=== PATIENT | female | born 1965 | race Caucasian/White ===

== ENCOUNTER 2020-03-29 07:08 | Outpatient (NON) | payer OTHER, SELFPAY ==
[2020-03-29 18:47] LABS: SARS-CoV-2 RNA PCR Positive
== END 2020-03-29 07:09 ==
LOC: ANHCOVIDDT 07:08
PROVIDERS: PCP Family Medicine; Visit Provider Family Medicine
DX: U07.1 COVID-19 (principal)
CPT/HCPCS: C9803; U0003; U0005

== ENCOUNTER 2020-10-18 07:42 | Outpatient (CLI) | payer OTHER, SELFPAY ==
[2020-10-18 08:09] LABS: Basophils Absolute Auto 0.1 K/mm3 (0.0-0.1); Basophils Percent Auto 0.6 % (0.2-1.2); Eosinophils Absolute Auto 0.2 K/mm3 (0-0.3); Eosinophils Percent Auto 1.7 % (0-4.4); Hematocrit 43.6 % (37.0-47.0); Hemoglobin 14.7 g/dL (12.0-15.0); Immature Granulocyte Absolute 0.03 K/mm3 (0.00-0.031); Immature Granulocyte Percent A 0.3 % (0-0.5); Lymphocytes Absolute Auto 2.96 K/mm3 (0.9-3.2); Lymphocytes Percent Auto 33.6 % (18.3-44.2); Mean Corpuscular HGB Conc 33.7 g/dl (32-36); Mean Corpuscular Hemoglobin 31.3 pg (26-34); Mean Platelet Volume 9.5 fl (7.4-10.4); Monocytes Absolute Auto 0.8 K/mm3 (0.1-0.6); Neutrophils Absolute Auto 4.8 K/mm3 (1.3-6.7); Neutrophils Percent Auto 54.8 % (45.5-73.1); Platelet Count Result 364 k/mm3 (150-375); Red Blood Count 4.69 M/mm3 (4.2-5.4); Red Cell Distribution Width 12.8 % (11.5-14.5); White Blood Count 8.8 K/mm3 (4.5-10.0)
[2020-10-18 08:24] LABS: Rheumatoid Factor < 8.6 IU/ML (<12)
[2020-10-18 08:25] LABS: CRP < 0.5 mg/dL (<1.0)
[2020-10-18 09:01] LABS: Vitamin D 25 Hydroxy 53.6 ng/mL
[2020-10-18 09:47] LABS: Erythrocyte Sedimentation Rate 16 mm/hr (0-20)
== END 2020-10-18 07:43 | disposition home or self-care (01) ==
PROVIDERS: PCP Family Medicine; Visit Provider Family Medicine
DX: M25.50 Pain in unspecified joint (principal); E03.9 Hypothyroidism, unspecified; E55.9 Vitamin D deficiency, unspecified
CPT/HCPCS: 36415; 82306; 84443; 85025; 85652; 86038; 86140; 86430

== ENCOUNTER 2021-11-21 00:35 | Day surgery (SDC) | payer OTHER, SELFPAY ==
[2021-11-10 14:33] VITALS: BMI 31.1
--- NOTE | 2021-11-20 20:22 | PM.HPGS ---
History of Present Illness History of Present Illness Consent: Risks, benefits, and alternatives have been discussed and questions answered. Patient agrees to proceed with procedure. Chief complaint: neoplasm screening Narrative: Paula Guo is a 56 year old female refferred for colon cancer screening Review of Systems Review of Systems: All systems reviewed & are unremarkable except as noted in HPI and below PMFSH Family History Family History Other Cerebrovascular accident Diabetes mellitus Family history of alcoholism Family history of arthritis Family history of malignant neoplasm Hypertension Social History Social History Smoking status: Never smoker Alcohol intake: current Living arrangements: with family Spiritual care concerns: No Meds Home Medications and Allergies Home Medications Medication Instructions Recorded Confirmed Type cetirizine 10 mg tablet 10 mg PO DAILY 11/10/21 11/21/21 History ergocalciferol (vitamin D2) 1,250 1,250 mcg PO DAILY 11/10/21 11/21/21 History mcg (50,000 unit) capsule escitalopram oxalate 10 mg tablet 10 mg PO DAILY 11/10/21 11/21/21 History hydrochlorothiazide 12.5 mg capsule 12.5 mg PO DAILY 11/10/21 11/21/21 History levothyroxine 25 mcg tablet 25 mcg PO DAILY 11/10/21 11/21/21 History (Synthroid) valacyclovir 1 gram tablet 1,000 mg PO DAILY 11/10/21 11/21/21 History Allergies Allergy/AdvReac Type Severity Reaction Status Date / Time No Known Allergies Allergy Verified 11/21/21 06:21 Exam Const: General: alert Orientation/consciousness: patient oriented x3 Resp: Auscultation: clear to auscultation bilaterally Cardio: Rhythm: regular rhythm GI: GI Palp: Yes Soft to palpation and No Tenderness to palpation present (GI) Neuro: General: patient oriented x3 Assessment and Plan Assessment and plan (1) Colon cancer screening: Code(s): Z12.11 - Encounter for screening for malignant neoplasm of colon Status: Acute Assessment and Plan: Colonoscopy with possible biopsy or polypectomy or cautery or injection of substances.
[2021-11-21 06:15] VITALS: BP 153/81; PULSE 88; RESP 16; TEMP 36.4; O2SAT 97; BMI 31.2
[2021-11-21] MEDS: LACTATED RINGERS 1,000 ML 150 ML IV CONT (06:31)
--- NOTE | 2021-11-21 07:20 | WPDANESEPPF ---
Anes - Initial Pre Proc Eval Procedure: Operation Date: 11/21/21 07:30 Proposed Procedures p Screening Colonoscopy - Kennedy Navarro MD Date/Time: 11/21/21 07:20 Surgeon: Kennedy Navarro MD Pre Op Diagnosis: neoplasm screening Patient Data Age: 56 Gender: F Height: 1.57 m Weight: 77.5 kg Last Vital Signs Temp 97.5 F L 11/21/21 06:15 Pulse 88 11/21/21 06:15 Resp 16 11/21/21 06:15 BP 153/81 H 11/21/21 06:15 Pulse Ox 97 11/21/21 06:15 O2 Del Method Room Air 11/21/21 06:15 Allergies Allergy/AdvReac Type Severity Reaction Status Date / Time No Known Allergies Allergy Verified 11/21/21 06:21 Home Medications Medication Instructions Recorded Confirmed Type cetirizine 10 mg tablet 10 mg PO DAILY 11/10/21 11/21/21 History ergocalciferol (vitamin D2) 1,250 1,250 mcg PO DAILY 11/10/21 11/21/21 History mcg (50,000 unit) capsule escitalopram oxalate 10 mg tablet 10 mg PO DAILY 11/10/21 11/21/21 History hydrochlorothiazide 12.5 mg capsule 12.5 mg PO DAILY 11/10/21 11/21/21 History levothyroxine 25 mcg tablet 25 mcg PO DAILY 11/10/21 11/21/21 History (Synthroid) valacyclovir 1 gram tablet 1,000 mg PO DAILY 11/10/21 11/21/21 History Patient hx anesthesia problems: none Family hx anesthesia problems: none Results Review: All pre-operative results and documents have been reviewed as part of the pre-operative evaluation. [facility]LY [facility] Family History Family History (Updated 10/01/16 @ 07:53 by DOCTOR UNKNOWN) Other Cerebrovascular accident Diabetes mellitus Family history of alcoholism Family history of arthritis Family history of malignant neoplasm Hypertension Social History Social History Smoking status: Never smoker Alcohol intake: current Living arrangements: with family Spiritual care concerns: No Anes - Eval Final PreProcedure Day of Procedure 11/21/21 07:20 Patient weight: obese Heart: regular rate and rhythm Lungs: clear to auscultation Airway: Mallampati scale class II Neurological: alert and oriented Last oral intake: >/= 8 hours ASA classification: III Emergent: no Anesthetic plan: proceed Anesthesia type and monitoring: general GIVS and standard monitoring Results Review: All pre-operative results and documents have been reviewed as part of the pre-operative evaluation. Informed Consent: The patient's anesthetic plan and its attendant risks and benefits were discussed with the patient/family/POA. Questions were solicited and answers provided to the satisfaction of the patient/family/POA.
[2021-11-21 07:50] VITALS: BP 132/83; PULSE 85; RESP 15; O2SAT 96
[2021-11-21 08:00] VITALS: BP 133/75; PULSE 79; RESP 17; O2SAT 96
[2021-11-21 08:10] VITALS: BP 133/86; PULSE 74; RESP 13; O2SAT 100
== END 2021-11-21 08:19 | disposition home or self-care (01) ==
PROVIDERS: PCP Family Medicine; Visit Provider Internal Medicine Gastroenterology
PROC: 0DJD8ZZ Inspection of Lower Intestinal Tract, Via Natural or Artificial Opening Endoscopic (ICD-10-PCS; CPT 45378; principal; 2021-11-21 07:30)
DX: Z12.11 Encounter for screening for malignant neoplasm of colon (principal); K63.9 Disease of intestine, unspecified; K64.8 Other hemorrhoids
CPT/HCPCS: 45380; 88305; J2704; J7120

== ENCOUNTER 2022-04-27 08:27 | Outpatient (CLI) | payer OTHER, SELFPAY ==
--- NOTE | ~2022-04-27 | MM_ITS ---
EXAMINATION: MM screening willie BI w yasmeen HISTORY: Screening mammogram TECHNIQUE: Craniocaudal and mediolateral oblique 3-D tomosynthesis images were obtained and synthetic 2-D images were generated. CAD analysis was submitted and interpreted. COMPARISON: 07/17/2014 bilateral screening mammogram BREAST PARENCHYMAL COMPOSITION: The breasts are almost entirely fatty. FINDINGS: There is no evidence of suspicious mass, calcification, or architectural distortion to sugg est malignancy in either breast. There has been no suspicious interval change. IMPRESSION: 1. No mammographic evidence of malignancy. 2. Recommend routine screening mammography in one year. BI-RADS Category 1: Negative Reviewed, dictated and finalized at location A. E[facility] AFFA[facility] VICE PRESIDENT
== END 2022-04-27 08:28 | disposition home or self-care (01) ==
LOC: ANHIMG 08:29
PROVIDERS: PCP Family Medicine; Visit Provider Family Medicine
DX: Z12.31 Encounter for screening mammogram for malignant neoplasm of breast (principal)
CPT/HCPCS: 77063; 77067

== ENCOUNTER 2023-03-07 15:22 | Emergency (ER) | payer OTHER, SELFPAY ==
[2023-03-07 15:43] VITALS: BP 140/79; PULSE 100; RESP 15; TEMP 36.2; O2SAT 97
[2023-03-07 17:33] LABS: Influenza A QL RT-PCR Negative (Negative); Influenza B QL RT-PCR Negative (Negative); RSV RNA, RT-PCR Negative (Negative); SARS-CoV-2 RNA PCR Negative (Negative)
[2023-03-07 17:38] VITALS: BP 185/85; PULSE 65; RESP 22; O2SAT 98
--- NOTE | 2023-03-07 17:49 | PC.NURSE ---
Pts came out of room stating patient could not breathe. This RN in room to find patient sitting up in bed as if she was gasping for air. Patient would not respond to RNs questions, told hre her nose was clogged. VSS, 98% O2 RA. Pt then began breathing normally again and stated I can get air now . Dr. Mujica notified.
--- NOTE | 2023-03-07 18:05 | ED.GENADULT ---
HPI - General Adult General Chief complaint: Upper Respiratory Infection Stated complaint: sick, trouble breathing Time Seen by Provider: 03/07/23 16:03 History of Present Illness HPI narrative: Patient is a 58-year-old female who presents ER with sinus congestion. Began today. Associated postnasal drip and cough. Is quite burdensome to her. No difficulty swallowing. No chest pain or chest pressure. Related Data Home Medications Medication Instructions Recorded Confirmed cetirizine 10 mg tablet 10 mg PO DAILY 11/10/21 11/21/21 ergocalciferol (vitamin D2) 1,250 1,250 mcg PO DAILY 11/10/21 11/21/21 mcg (50,000 unit) capsule escitalopram oxalate 10 mg tablet 10 mg PO DAILY 11/10/21 11/21/21 hydrochlorothiazide 12.5 mg capsule 12.5 mg PO DAILY 11/10/21 11/21/21 levothyroxine 25 mcg tablet 25 mcg PO DAILY 11/10/21 11/21/21 (Synthroid) valacyclovir 1 gram tablet 1,000 mg PO DAILY 11/10/21 11/21/21 Allergies Allergy/AdvReac Type Severity Reaction Status Date / Time No Known Allergies Allergy Verified 03/07/23 15:45 Review of Systems Constitutional: Constitutional: Reports no additional constitutional complaints ENT: Reports nasal congestion and Reports sore throat Cardiovascular: Cardiovascular: Reports no additional cardiovascular complaints Respiratory: Respiratory: Reports cough, Denies dyspnea and Denies wheezing PMFSH Family History Family History Other Cerebrovascular accident Diabetes mellitus Family history of alcoholism Family history of arthritis Family history of malignant neoplasm Hypertension Social History Social History Smoking status: Never smoker Alcohol intake: current Living arrangements: with family Spiritual care concerns: No Exam Narrative: GENERAL: Well-appearing, well-nourished, and in no acute distress. HEAD: Normocephalic, atraumatic. ENT: Mucous membranes moist. Cold sore left upper lip NECK: Supple. CHEST: Clear to auscultation. No respiratory distress. HEART: Regular rate and rhythm. Normal peripheral pulses. NEURO: Alert and oriented x3. PSYCH: Normal mood and affect. Course Course Emergency Course: patient given reassurance. Discharged with supportive care. Vital Signs Vital signs: Vital Signs Temperature 97.1 F L 03/07/23 15:43 Pulse Rate 100 03/07/23 15:43 Respiratory Rate 15 03/07/23 15:43 Blood Pressure 140/79 03/07/23 15:43 Pulse Oximetry 97 03/07/23 15:43 Oxygen Delivery Room Air 03/07/23 15:43 Temperature 97.1 F L 03/07/23 15:43 Pulse Rate 65 03/07/23 17:38 Respiratory Rate 22 H 03/07/23 17:38 Blood Pressure 185/85 H 03/07/23 17:38 Pulse Oximetry 98 03/07/23 17:38 Oxygen Delivery Room Air 03/07/23 17:38 Medical Decision Making Vital Signs Vital Signs: Vital Signs Temperature 97.1 F L 03/07/23 15:43 Pulse Rate 100 03/07/23 15:43 Respiratory Rate 15 03/07/23 15:43 Blood Pressure 140/79 03/07/23 15:43 Pulse Oximetry 97 03/07/23 15:43 Oxygen Delivery Room Air 03/07/23 15:43 Temperature 97.1 F L 03/07/23 15:43 Pulse Rate 65 03/07/23 17:38 Respiratory Rate 22 H 03/07/23 17:38 Blood Pressure 185/85 H 03/07/23 17:38 Pulse Oximetry 98 03/07/23 17:38 Oxygen Delivery Room Air 03/07/23 17:38 Lab Data Labs: Lab Results 03/07/23 Range/Units 16:45 Influenza A (RT-PCR) Negative (Negative) Influenza B (RT-PCR) Negative (Negative) RSV (RT-PCR) Negative (Negative) SARS-CoV-2 RNA (RT-PCR) Negative (Negative) Discharge Plan Discharge Clinical Impression: Acute viral syndrome Patient Disposition: Home, Self-Care Condition: Stable Instructions: Viral Syndrome (ED) Additional Instructions: Return ER if you have fever over 100.4? F, you cannot keep down food/water, or you have additiona
== END 2023-03-07 18:28 | disposition home or self-care (01) ==
PROVIDERS: Emergency Provider Emergency Medicine; PCP Family Medicine
DX: B34.9 Viral infection, unspecified (principal); Z20.822 Contact with and (suspected) exposure to COVID-19
CPT/HCPCS: 87637; 99283

== ENCOUNTER 2023-04-27 15:27 | Emergency (ER) | payer OTHER, SELFPAY ==
[2023-04-27] VITALS (7 sets, daily range): BP systolic 98–146; BP diastolic 59–86; PULSE 72–82; RESP 13–20; TEMP 35.3; O2SAT 96–99
--- NOTE | 2023-04-27 16:13 | ED.SYNCOPE ---
HPI - Syncope General Chief Complaint: Syncope <CHARLES Palacios Last Filed: 04/27/23 16:23> Stated Complaint: syncopy <CHARLES Palacios Last Filed: 04/27/23 16:23> Time Seen by Provider: 04/27/23 16:13 <CHARLES Palacios Last Filed: 04/27/23 16:23> Focused HPI: Patient is a 58 y/o female who presents to the ED with c/o syncope. Patient reports she was donating plasma today for the first time. She states towards the end of the treatment, she became hot and diaphoretic, began feeling nauseous, weak, lightheaded. She then had a witnessed syncopal episode while sitting in the treatment chair. EMS was then called. Patient feeling persistently weak, nauseous, lightheaded currently. Reports 1 previous episode of syncope while . Denies pain, CP, SOB. Patient did eat and drink normally this morning. GENERAL: Ill and pale appearing, well-nourished, and in no acute distress. HEAD: Normocephalic, atraumatic. CHEST: Clear to auscultation. ?No respiratory distress. HEART: Regular rate and rhythm.? NEURO: ?Alert and oriented x3. No focal deficits. Patient screened in triage and initial orders placed.? ?Additional care and disposition to be based upon?diagnostic testing and treatment. <Any Diamond PA-C - Last Filed: 04/27/23 16:23> Related Data Home Medications: Home Medications Medication Instructions Recorded Confirmed cetirizine 10 mg tablet 10 mg PO DAILY 11/10/21 11/21/21 ergocalciferol (vitamin D2) 1,250 1,250 mcg PO DAILY 11/10/21 11/21/21 mcg (50,000 unit) capsule escitalopram oxalate 10 mg tablet 10 mg PO DAILY 11/10/21 11/21/21 hydrochlorothiazide 12.5 mg capsule 12.5 mg PO DAILY 11/10/21 11/21/21 levothyroxine 25 mcg tablet 25 mcg PO DAILY 11/10/21 11/21/21 (Synthroid) valacyclovir 1 gram tablet 1,000 mg PO DAILY 11/10/21 11/21/21 <Any Diamond PA-C - Last Filed: 04/27/23 16:23> Allergies/Adverse Reactions: Allergies Allergy/AdvReac Type Severity Reaction Status Date / Time No Known Allergies Allergy Verified 03/07/23 15:45 <Any Diamond PA-C - Last Filed: 04/27/23 16:23> [facility] Family History Family History: Family History Other Cerebrovascular accident Diabetes mellitus Family history of alcoholism Family history of arthritis Family history of malignant neoplasm Hypertension <Any Diamond PA-C - Last Filed: 04/27/23 16:23> Social History Social History: Social History Smoking status: Never smoker Alcohol intake: current Living arrangements: with family Spiritual care concerns: No <Any Diamond PA-C - Last Filed: 04/27/23 16:23> Exam Narrative: APPEARANCE: No apparent distress. Head: atraumatic. EYES: EOMI, NOSE: Atraumatic NECK: Trachea midline RESPIRATORY: No increased rate of breathing, clear to auscultation CARDIOVASCULAR: RRR, no peripheral edema ABDOMINAL: Non-distended soft nontender MUSCULOSKELETAl: No obvious deformities NEURO: Alert. Moving 4/4 extremities SKIN:: Warm, dry. Normal color PSYCHIATRIC: Normal affect <Neal Jon MD - Last Filed: 04/27/23 21:34> Course Vital Signs Vital signs: Vital Signs Temperature 95.6 F L 04/27/23 15:38 Pulse Rate 81 04/27/23 15:38 Respiratory Rate 20 04/27/23 15:38 Blood Pressure 98/59 L 04/27/23 15:38 Pulse Oximetry 98 04/27/23 15:38 Temperature 95.6 F L 04/27/23 15:38 Pulse Rate 74 04/27/23 18:57 Respiratory Rate 14 04/27/23 18:57 Blood Pressure 119/74 04/27/23 18:57 Pulse Oximetry 99 04/27/23 18:57 <Any Diamond PA-C - Last Filed: 04/27/23 16:23> Vital Signs Temperature 95.6 F L 04/27/23 15:38 Pulse Rate 81 04/27/23 15:38 Respiratory Rate 20 04/27/23 15:38 Blood Pressure 98/59 L 04/27/23 15:38 Pulse
--- NOTE | 2023-04-27 16:14 | ECG_ITS ---
Measurements Intervals [place] Rate: 67 P: 49 LA: 148 QRS: 66 QRSD: 80 T: 63 QT: 430 QTc: 455 Interpretive Statements SINUS RHYTHM POSSIBLE LEFT ATRIAL ENLARGEMENT [-0.1mV P WAVE IN V1/V2] BORDERLINE ECG NO PREVIOUS ECG AVAILABLE FOR COMPARISON Electronically Signed On 04-28-2023 11:42:34 FILL TECHNICIAN by Rosendo Haq M.D.
[2023-04-27] MEDS: ONDANSETRON INJ 4 MG/2 ML VIAL IV PUSH (16:44)
--- NOTE | 2023-04-27 16:45 | PC.NURSE ---
Pt states was donating Plasma when she experienced a syncopal episode. C/O tired & no energy . Nausea improved.
[2023-04-27 17:03] LABS: Basophils Absolute Auto 0.1 K/mm3 (0.0-0.1); Basophils Percent Auto 0.4 % (0.2-1.2); Eosinophils Absolute Auto 0.2 K/mm3 (0-0.3); Eosinophils Percent Auto 1.7 % (0-4.4); Hematocrit 44.5 % (37.0-47.0); Hemoglobin 13.9 g/dL (12.0-15.0); Immature Granulocyte Absolute 0.05 K/mm3 (0.00-0.031); Immature Granulocyte Percent A 0.4 % (0-0.5); Immature Platelet Fraction Pct 3.5 % (0.9-11.2); Lymphocytes Absolute Auto 2.45 K/mm3 (0.9-3.2); Lymphocytes Percent Auto 19.2 % (18.3-44.2); Mean Corpuscular HGB Conc 31.2 g/dl (32-36); Mean Corpuscular Volume 96.1 fl (80-100); Mean Platelet Volume 10.4 fl (7.4-10.4); Monocytes Absolute Auto 0.7 K/mm3 (0.1-0.6); Monocytes Percent Auto 5.7 % (2.6-8.5); Neutrophils Absolute Auto 9.2 K/mm3 (1.3-6.7); Neutrophils Percent Auto 72.6 % (45.5-73.1); Platelet Count Result 310 k/mm3 (150-375); Red Blood Count 4.63 M/mm3 (4.2-5.4); White Blood Count 12.7 K/mm3 (4.5-10.0)
[2023-04-27] MEDS: SODIUM CHLORIDE 0.9% IV 1,000 ML 999 ML IV CONT ×2 (18:56→19:57)
[2023-04-27 19:11] LABS: Alanine Aminotransferase 21 U/L (6-35); Albumin Level 3.4 g/dL (3.5-5.1); Alkaline Phosphatase 90 U/L (38-126); Anion Gap 1 mmol/L (8-16); Aspartate Amino Transferase 25 U/L (14-36); Bilirubin,Total 0.5 mg/dL (0.2-1.3); Blood Urea Nitrogen 14 mg/dL (7-17); Calcium 8.8 mg/dL (8.4-10.2); Carbon Dioxide 31 mmol/L (22-30); Chloride 103 mmol/L (98-107); Estimated CRCL calculation 69 ml/min; Estimated Glomerular Filt Rate > 60; Glucose 165 mg/dL (65-110); Potassium 4.8 mmol/L (3.4-5.0); Sodium 135 mmol/L (137-145)
[2023-04-27 19:18] LABS: Magnesium 2.1 mg/dL (1.6-2.3)
--- NOTE | 2023-04-27 19:20 | PC.NURSE ---
Report given to Maxim LAWRENCE, all questions answered.
[2023-04-27 19:22] LABS: Troponin I < 0.012 ng/mL (0.000-0.034)
--- NOTE | 2023-04-27 19:24 | PC.NURSE ---
Assumed care of pt from MELINDA Will at this time.
[2023-04-27 20:31] LABS: Appearance Urine Clear (Clear); Bilirubin Urine Negative (Negative); Blood Urine Negative (Negative); Color Urine Dark Yellow (Yellow); Glucose Urine UA Negative (Negative); Ketones Urine 1+ mg/dL (Negative); Leukocyte Esterase Ur Negative LEU/UL (Negative); Nitrate Urine Negative (Negative); Protein Urine Negative (Negative); Specific Grav Ur 1.013 (1.001-1.035); Urobilinogen Urine 0.2 mg/dL (<2.0)
[2023-04-27 20:41] LABS: Add Urine Microscopic? YES
== END 2023-04-27 21:44 | disposition home or self-care (01) ==
PROVIDERS: Physician Assistant; Emergency Provider Emergency Medicine; PCP Family Medicine
DX: R55 Syncope and collapse (principal)
CPT/HCPCS: 36415; 80053; 81001; 83735; 84484; 85025; 85055; 93005; 96361; 96374; 99284; J2405; J7030

== ENCOUNTER 2024-10-30 02:31 | Emergency (ER) | payer OTHER, SELFPAY ==
--- NOTE | ~2024-10-30 | XR_ITS ---
EXAM/ PROCEDURE: XR hand LT min 3V - 10/30/2024 2:51 CDT HISTORY: 59 years old Female with injury/ PT POINTED TO PAIN BEING ALONG 5TH METACARPAL REGION COMPARISON: None available TECHNIQUE: Three view(s) FINDINGS/ IMPRESSION: Probable nondisplaced fifth metacarpal base intra-articular fracture versus artifact. Correlate with point tenderness.Joint space narrowing, subchondral sclerosis, subchondral cyst formation and osteoph yte formation, compatible with mild osteoarthritis. Reviewed, dictated and finalized at location A.
[2024-10-30 02:32] VITALS: BP 153/93; PULSE 87; RESP 16; TEMP 36.6; O2SAT 98
--- OUTSIDE RECORDS SUMMARY | 2024-10-30 02:33 | XMS_ITS | Clinical Summary ---
Author Organization [facility] [address] Address [address] [place] [address] Care Team Providers Care Foot Setter Name Role Phone Joce Billings MD Primary Care Provider Source Comments [facility] [address],non-owned Affiliates and Associated Physician Practices is amultiple site organization consisting of ambulatory clinics and hospital sitesin [place], [place], [place] and [place]. This disclosure is being madepursuant to the Care Everywhere program and may not contain all information available regarding this patient. Last updated 17.[employer] Allergies No known active allergies Medications * Be aware that medications may not be up to date on this document. Alwaysverify current medications with the patient. buPROPion XL 24hr (Wellbutrin-XL) 150 MG tablet 1 (one) tablet once daily 02/18/2022 Active calcipotriene (Dovonex) 0.005 % ointment USE TWICE DAILY FOR TWO WEEKS THEN NEEDED 12/03/2021 Active cetirizine (ZyrTEC) 10 MG tablet 1 (one) tablet once daily 02/26/2022 Active clobetasol (Temovate) 0.05 % ointment 12/02/2021 Active vitamin D, ergocalciferol, (Drisdol) 1.25 MG (39467 UT) capsule 1 (one) capsule every 7 days 02/26/2022 Active escitalopram (Lexapro) 10 MG tablet 1 (one) tablet once daily 10/16/2021 Active hydroCHLOROthia zide (Microzide) 12.5 MG capsule 1 (one) capsule once daily 02/26/2022 Active Synthroid 25 MCG tablet 1 (one) tablet once daily 02/26/2022 Active montelukast (Singulair) 10 MG tablet 1 (one) tablet once daily 02/26/2022 Active valACYclovir (Valtrex) 1 GM tablet 100 mg 2 times daily 02/26/2022 Active SUPER B COMPLEX/C PO Take by mouth once daily Active Multiple Vitamins-Minera ls (OCUVITE ADULT 50+ PO) Take by mouth once daily Active Zinc 50 MG Rotate on 2 weeks, off 2 weeks Active Chromium Picolinate 200 MCG Take by mouth once daily Active Naproxen Sodium (ALEVE PO) Take by mouth as needed Active magnesium 250 MG tablet Take 1 (one) tablet by mouth once daily Active AZO-CRANBERRY PO Take by mouth once daily Active Family History Medical History Relation Name Comments Psoriasis Brother Crohn's Disease Daughter Relation Name Status Comments Brother Daughter Alive Social History Tobacco Use Types Packs/Day Years Used Date Smoking Tobacco: Never Smokeless Tobacco: Never Tobacco Cessation:Counseling Given: Not Answered Alcohol Use Standard Drinks/Week Comments Never 0 (1 standard drink = 0.6 oz pur e alcohol) PHQ-2 Answer Date Recorded PHQ2 TOTAL SCORE 4 05/14/2022 Comments Unknown Sex and Gender Information Value Date Recorded Sex Assigned at Not on file Legal Sex Female 3:14 PM CDT Gender Identity Not on file Sexual Orientation Not on file Last Filed Vital Signs Vital Sign Reading Time Taken Comments Blood Pressure 140/88 05/14/2022 10:23 AM HAMMERER HELPER Pulse 96 05/14/2022 10:23 AM HAMMERER HELPER Temperature 36.5 C (97.7 F) 05/14/2022 10:23 AM HAMMERER HELPER Respiratory Rate - - Oxygen Saturation - - Inhaled Oxygen Concentration - - Weight 76.7 kg (169 lb) 05/14/2022 10:23 AM HAMMERER HELPER Height 157.5 cm (5' 2) 05/14/2022 10:23 AM HAMMERER HELPER Body Mass Index 30.91 05/14/2022 10:23 AM HAMMERER HELPER Plan of Treatment Health Maintenance Due Date Last Done Comments COLOGUARD (AGES 45-75) - COL ON CA SCREENING 1965 COLON MONITORING 1963 COLONOSCOPY - COLON CA SCREENING 1963 CT COLONOGRAPHY - COLON CA SCREENING 1965 Colorectal Cancer Screening 1965 FIT - COLON CA SCREENING 1963 FLEX SIG - COLON CA SCREENING 1963 LIPID TESTING 1965 MAMMOGRAM 1963 HIV SCREENING 1978 HEPATITIS C SCREENING 01/26/1981 DTAP/TDAP/TD VACCINES (1 - Tdap) 1982 PAP SMEAR 02/01/1984 PNEUMOCOCCAL VACCINE 50+ (1 of 1 - PCV) 2013 ZOSTER VACCINE (1 of 2) 2013 COVID-19 VACCINE (1 - 2023-2 5 season) 2023 DEPRESSION SCREENING 03/15/2024 05/14/2022 INFLUENZA VACCINE (#1) 2024 04/15/2012 SCREENING FOR DIABETES 05/19/2025 , 05/19/2022, 05/14/2022 Respiratory Syncytial Virus (RSV) Vaccine Pt: or over 60 yrs (1 - 1-dose 75+ series) 2038 HEPATITIS B VACCINE Aged Out No longe r eligible based on patient's age to complete this topic HIB VACCINE Aged Out No longer eligi ble based on patient's age to complete this topic HPV VACCINE Aged Out No longer eligi ble based on patient's age to complete this topic MENINGOCOCCAL (Group B) VACCINE SHARED DECISION-MAKING Aged Out No longer eligible based on patient's age to complete this topic MENINGOCOCCAL GROUPS A/C/Y/W VACCINE Aged Out No longer eligible b ased on patient's age to complete this topic Procedures Procedure Name Priority Date/Time Associated Diagnosis Comments COMPREHENSIVE METABOLIC PANEL Routine 05/14/2022 11:33 AM HAMMERER HELPER Psoriasis Polyarthralgia Positive DANNIE (antinuclear antibody) from Last 3 Months or Most Recently Relevant to Health Maintenance Results * (ABNORMAL) COMPREHENSIVE METABOLIC PANEL (05/14/2022 11:33 AM HAMMERER HELPER) BUN 13 7 - 26 mg/dL 05/14/2022 12:51 PM [facility] Creatinine 0.77 0.56 - 0.96 mg/dL 05/14/2022 12:51 PM [facility] Sodium 137 136 - 145 mmol/L 05/14/2022 12:51 PM [facility] Potassium 3.6 3.5 - 4.5 mmol/L 05/14/2022 12:51 PM [facility] Chloride 102 98 - 107 mmol/L 05/14/2022 12:51 PM [facility] CO2 23 22 - 29 mmol/L 05/14/2022 12:51 PM [facility] Glucose 113 70 - 115 mg/dL 05/14/2022 12:51 PM [facility] Calcium 9.4 8.4 - 10.2 mg/dL 05/14/2022 12:51 PM [facility] Protein Total 7.3 6.0 - 8.3 g/dL 05/14/2022 12:51 PM [facility] Albumin 3.8 3.4 - 5.0 g/dL 05/14/2022 12:51 PM [facility] Bilirubin Total 0.5 0.2 - 1.2 mg/dL 05/14/2022 12:51 PM [facility] Alkaline Phosphatase 90 40 - 150 U/L 05/14/2022 12:51 PM [facility] ALT 18 5 - 55 U/L 05/14/2022 12:51 PM [facility] AST 17 5 - 34 U/L 05/14/2022 12:51 PM [facility] Anion Gap 16 8 - 18 05/14/2022 12:51 PM [facility] BUN/Creatinine Ratio 17 7 - 23 05/14/2022 12:51 PM [facility] Osmolality Calculated 285 270 - 300 mOsm/kg 05/14/2022 12:51 PM [facility] Albumin/Globulin Ratio 1.1 1.1 - 2.3 05/14/2022 12:51 PM [facility] eGFR by CKD-EPI 89(L) >=90 mL/min/1.7 3 m2 05/14/2022 12:51 PM [facility] Blood BLOOD SPECIMEN / Unknown Lab Venipuncture / Unknown 05/14/2022 11:33 AM [facility] 05/14/2022 12:16 PM [facility] us Campbell Young MD LAB - CHEMISTRY ORDERABLES Final Result [facility] [address] [place] [address] [phone] from Last 3 Months or Most Recently Relevant to Health Maintenance Insurance Member Subscriber Plan / Payer (Ef fective for All Dates) Name:Paula Guo L Relation to Subscriber:Spouse Name:AAKASH GUO Subscriber ID:Not on file Date of :1965 Payer ID:[id number] (NAIC) Group ID:Not on file Type:/ Address: [place] [id number] Member Subscriber Plan / Payer (Ef fective for All Dates) Name:Paula Guo Relation to Subscriber:Spouse Name:AAKASH GUO Subscriber ID:Not on file Date of :1965 Payer ID:[id number] (NAIC) Group ID:Not on file Type:/ Address: [place] [id number] Care Teams Foot Setter Relationship Specialty Start Date End Date Joce Billings MD [address] [place] [address] [address] [place] [id number] PCP - General 11/25/21
--- OUTSIDE RECORDS SUMMARY | 2024-10-30 02:33 | XMS_ITS | Clinical Summary ---
Author Organization [facility] Address [address] [place] [address] Care Team Providers Care Manager Package Name Role Phone Charanjit Stroud Primary Care Provider + Allergies No known active allergies Medications buPROPion XL (WELLBUTRIN XL) 150 MG 24 hr tablet 1 tablet (150 mg total) daily. 02/18/2022 Active cetirizine (ZYRTEC) 10 MG tablet 1 tablet (10 mg total) daily. 02/26/2022 Active escitalopram (LEXAPRO) 10 MG tablet Take 1 tablet (10 mg total) by mouth every morning. 08/19/2022 Active cyclobenzaprine (FLEXERIL) 10 MG tablet Take 1 tablet (10 mg total) by mouth 3 (three) times daily as needed for Muscle Spasms. Active benzonatate (TESSALON) 200 MG capsule Take 1 capsule (200 mg total) by mouth 3 (three) times daily. 03/09/2023 Active meclizine (ANTIVERT) 25 MG tablet Take 1 tablet 3 times a day by oral route. Active traMADol (ULTRAM) 50 MG tablet Take 1-2 TABLET EVERY 6 HOURS by oral route. Active olopatadine (PATANOL) 0.1 % ophthalmic solution 1 drop 2 (two) times daily. Active omeprazole (PRILOSEC) 40 MG capsule Take 1 capsule (40 mg total) by mouth daily. Active vitamin D2, ergocalciferol, (DRISDOL) 1.25 mg capsule 06/24/2023 Active fluticasone propionate (FLONASE) 50 MCG/ACT nasal spray 1 spray by Each Nostril route 2 (two) times daily. shake liquid 03/24/2023 Active valACYclovir (VALTREX) 1 g tablet 06/24/2023 Active Active Problems Problem Noted Date Diagnosed Date Acute sinusitis 09/20/2023 Asthma ([facility]) 09/20/2023 Dizziness 09/20/2023 Generalized headache 09/20/2023 Depression 09/20/2023 Overview (09/20/2023): Refill available at [facility]. Nail hypertrophy 09/20/2023 Overview (09/20/2023): would have evaluated today but no evidence of true hypertrophy of hands/feet/no discoloration noted--pt cuts nails too short--explained pt due to PE must have nails long enough to trim for sample--pt agree w/ plan will defer until later Neuropathy 09/20/2023 Paresthesia 09/20/2023 Pharyngitis 09/20/2023 Overview (09/20/2023): Home care advice and hand-out give -to follow-up if not getting better in 3-5 days. Severe acute respiratory syn drome coronavirus 2 (SARS-CoV-2) test result unknown 09/20/2023 Backache 09/20/2023 Xerosis cutis 09/20/2023 Otitis media 03/23/2023 Hyperlipidemia 12/25/2022 Pharyngoesophageal dysphagia 12/09/2022 Overview (12/09/2022): Added automatically from request for surgery [id number] Allergic rhinitis 11/30/2022 Overview (09/20/2023): pharmacy doesn't carry zaditor anymore; will switch to patanol Essential hypertension 11/30/2022 Herpes labialis 11/30/2022 Hypothyroidism 11/30/2022 Tremor 11/30/2022 Vitamin D deficiency 11/30/2022 Aberrant right subclavian artery ([facility]) 09/22 Immunizations Immunization Administration Dates Next Due Influenza (Generic) 03/05/2021,04/15/2012,2003 Influenza Adult (Generic) 11/30/2022,02/12/2022 MODERNA COVID-19 (CONVENTIONAL UNDERWRITER HERMANN WHITLEY), MRNA, LNP-S, PF, 50 MCG/ 0.25 ML DOSE 03/05/2021 Tdap (Generic) 05/09/2016 Family History Medical History Relation Comments Crohns Disease Daughter Diabetes Father Crohns Disease Niece Diabetes Paternal Grandmother Relation Status Comments Daughter Alive Father Niece Alive Paternal Grandmother Social History Tobacco Use Types Packs/Day Years Used Date Smoking Tobacco: Never Passive Smoke Exposure: Never Smokeless Tobacco: Never Tobacco Cessation:Counseling Given: Not Answered Alcohol Use Standard Drinks/Week Comments No 0 (1 standard drink = 0.6 oz pur e alcohol) PHQ-2 Answer Date Recorded Patient Health Questionnaire-2 Score 0 12/09/2022 Comments No Sex and Gender Information Value Date Recorded Sex Assigned at Female 09/07/2023 11:31 AM CDT Legal Sex Female 1:32 AM 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 Gender Identity Female 09/07/2023 11:31 AM CDT Sexual Orientation Straight 09/07/2023 11 :31 AM CDT Last Filed Vital Signs Vital Sign Reading Time Taken Comments Blood Pressure 160/70 10/07/2023 10:00 AM CDT Pulse 79 10/07/2023 10:00 AM CDT Temperature 36.2 C (97.1 F) 01/01/2023 11:05 AM CDT Respiratory Rate 16 01/01/2023 11:05 AM CDT Oxygen Saturation 98% 01/01/2023 11:10 AM CDT Inhaled Oxygen Concentration - - Weight 76.7 kg (169 lb) 10/07/2023 10:00 AM CDT Height 157.5 cm (5' 2) 10/07/2023 10:00 AM CDT Body Mass Index 30.91 10/07/2023 10:00 AM CDT Plan of Treatment Health Maintenance Due Date Last Done Comments Colorectal Cancer Screening Colonoscopy (10 Years) 1965 Annual Physical 1966 Hepatitis C 1981 Pneumococcal Vaccine: 50+ Years (1 of 2 - PCV) 1982 Mammogram Screening 2003 Zoster Vaccines (1 of 2) 2013 RSV Immunization or 60+ Years (1 - Risk 60-74 years 1-dose series) 2023 COVID-19 Vaccine ( season) 2023 02/12/2022, 03/05/2021, 08/21/2020, Additional history exists PHQ-2 (Physician [place] [facility] [place]) 03/15/2024 12/09/2022 DTaP, Tdap and Td Vaccines (2 - Td or Tdap) 05/09/2026 05/09/2016 Meningococcal B Vaccine Aged Out No l onger eligible based on patient's age to complete this topic Meningococcal Vaccine Aged Out No flores jamie eligible based on patient's age to complete this topic RSV Immunizations Under 20 Months Aged Out No longer eligible based on patient's age to complete this topic Insurance Care Teams Manager Package Relationship Specialty Start Date End Date Charanjit Stroud PA [facility] [place] [phone] PCP - General PHYSICIAN ELECTROGALVANIZING MACHINE OPERATOR 09/13/23
[2024-10-30 07:13] VITALS: BP 141/111; PULSE 88; RESP 17; TEMP 36.6; O2SAT 100
--- NOTE | 2024-10-30 07:25 | ED.UPPEXIN ---
HPI - Extremity Injury (Upper) General Chief Complaint: Extremity Injury, Upper Stated Complaint: left hand might be broke Time Seen by Provider: 10/30/24 07:03 Source: patient and RN notes reviewed Mode of arrival: ambulatory Limitations: no limitations History of Present Illness HPI narrative: This is a 69 year old female right hand dominant who presents for evaluation of left hand pain. She noticed pain to dorsum left hand on Wednesday. She states she thought it was due to arthritis but her pain gradually worsened. She woke up with swollen hand 2 days ago. She has been taking ibuprofen and tylenol for her pain. She thinks she bumped her hand on something. She works at [employer]. complaint: injury to: left and hand Onset (ago): day(s) (5) Other injuries: none Handedness: right Place: home Relieving factors: cold therapy and medication Exacerbating factors: movement of extremity Related Data Home Medications ?Medication ?Instructions ?Recorded ?Confirmed ?Last Taken ?Type cetirizine 10 mg tablet 10 mg PO DAILY 11/10/21 11/21/21 Unknown History ergocalciferol (vitamin D2) 1,250 1,250 mcg PO DAILY 11/10/21 11/21/21 Unknown History mcg (50,000 unit) capsule escitalopram oxalate 10 mg tablet 10 mg PO DAILY 11/10/21 11/21/21 Unknown History hydrochlorothiazide 12.5 mg capsule 12.5 mg PO DAILY 11/10/21 11/21/21 Unknown History levothyroxine 25 mcg tablet 25 mcg PO DAILY 11/10/21 11/21/21 Unknown History (Synthroid) valacyclovir 1 gram tablet 1,000 mg PO DAILY 11/10/21 11/21/21 Unknown History Allergies Allergy/AdvReac Type Severity Reaction Status Date / Time No Known Allergies Allergy Verified 03/07/23 15:45 [facility] Past Medical History Medical History (Updated 10/30/24 @ 08:13 by Malou Oakley MD) Hypothyroid Hypertension Family History Family History Other Cerebrovascular accident Diabetes mellitus Family history of alcoholism Family history of arthritis Family history of malignant neoplasm Hypertension Social History Social History Smoking status: Never smoker Alcohol intake: current Living arrangements: with family Spiritual care concerns: No Exam Const: General: no acute distress and alert Nutritional Appearance: well nourished Orientation/consciousness: patient oriented x3 Limitations: no limitations HENMT: Head: normal to inspection Eyes: EOM: EOMs intact bilaterally Resp: Effort & Inspection: normal respiratory effort Skin: General skin exam: normal color Rashes: no rashes Wounds: no wounds Neuro: General: patient oriented x3, moves all extremities and no focal motor deficits Extrem: Other: left hand with swelling over 5th MTP and tenderness Psych: Mental Status: mental status grossly normal Affect: normal affect Attitude: cooperative Course Reevaluation(s) Reevaluation #1: Patient found to have fracture at base of 5th metatarsal. Will have ulnar gutter splint placed and refer to hand. I reviewed pain management with patient and family. Will prescribe norco. Date: 10/30/24 Time: 08:09 Vital Signs Vital signs: Vital Signs Temperature 97.8 F 10/30/24 02:32 Pulse Rate 87 10/30/24 02:32 Respiratory Rate 16 10/30/24 02:32 Blood Pressure 153/93 H 10/30/24 02:32 Pulse Oximetry 98 10/30/24 02:32 Oxygen Delivery Room Air 10/30/24 02:32 Temperature 97.5 F L 10/30/24 08:46 Pulse Rate 78 10/30/24 08:46 Respiratory Rate 16 10/30/24 08:46 Blood Pressure 145/107 H 10/30/24 08:46 Pulse Oximetry 96 10/30/24 08:46 Oxygen Delivery Room Air 10/30/24 02:32 Procedures Orthopedic Splinting/Casting Injury #1: Splinting/Casting Date: 10/30/24 Splinting/Casting Time: 08:40 Side: left Upper Extremity Injury Location: hand Upper Extremity Immobilizer: ulnar gutter Splint: customized in ED OCL: short arm Pre-Procedure Neuro Vascular Exam: normal Post-Procedure Neuro Vascular Exam: normal MDM - Extremity Injury (Upper) Differential Diagnosis Differential diagnosis: Likely fracture of wrist, finger sprain and fracture of hand Medical Records Attestation: I reviewed the patient's medical records. Imaging Data Radiologist's impression: STATRad xr left hand- 5th metacarpal base possible intraarticular fracture vs artifact Discharge Plan Discharge Clinical Impression: Closed fracture of fifth metacarpal bone of left hand Qualifiers: Encounter type: initial encounter Metacarpal location: base Fracture alignment: nondisplaced Qualified Code(s): S62.347A - Nondisplaced fracture of base of fifth metacarpal bone, left hand, initial encounter for closed fracture Patient Disposition: Home Condition: Stable Instructions: Antibiotic Form, Hand Fracture (ED), Splint Care (ED) Patient Language: Monegasque Prescriptions: New hydrocodone-acetaminophen 5-325 mg tablet 1 tablet PO Q6H PRN (Reason: pain) Qty: 10 0RF No Action cetirizine 10 mg tablet 10 mg PO DAILY valacyclovir 1 gram tablet 1,000 mg PO DAILY levothyroxine [Synthroid] 25 mcg tablet 25 mcg PO DAILY hydrochlorothiazide 12.5 mg capsule 12.5 mg PO DAILY ergocalciferol (vitamin D2) 1,250 mcg (50,000 unit) capsule 1,250 mcg PO DAILY escitalopram oxalate 10 mg tablet 10 mg PO DAILY fluticasone propionate [Allergy Relief (fluticasone)] 50 mcg/actuation spray,suspension 1 spray intranasal BID Qty: 16 0RF Rx Instructions: administer into each nostril benzonatate 200 mg capsule 200 mg PO TID Qty: 14 0RF Follow-up/Referrals: Jeanne Aguilar MD [Physician] - Shala,Danni Jane APRN [Primary Care Provider] -
--- OUTSIDE RECORDS SUMMARY | 2024-10-30 07:32 | XMS_ITS | Clinical Summary ---
Author Organization [facility] Address [address] [facility] [address] [place] [address] Care Team Providers Care And Rescue Fire Fighter Crash Fire Name Role Phone Joce Billings MD Primary Care Provider [phone] Source Comments [facility],non-owned Affiliates and Associated Physician Practices is amultiple site organization consisting of ambulatory clinics and hospital sitesin [place], [place], [place] and [place]. This disclosure is being madepursuant to the Care Everywhere program and may not contain all information available regarding this patient. Last updated 17.Karaz Allergies No known active allergies Medications * [...] Active vitamin D, ergocalciferol, (Drisdol) 1.25 MG (86075 UT) capsule 1 (one) capsule every 7 [...] Comments Blood Pressure 140/88 05/14/2022 10:23 AM MECHANICAL ASSEMBLY Pulse 96 05/14/2022 10:23 AM MECHANICAL ASSEMBLY Temperature 36.5 C (97.7 F) 05/14/2022 10:23 AM MECHANICAL ASSEMBLY Respiratory Rate - - Oxygen Saturation - - Inhaled Oxygen Concentration - - Weight 76.7 kg (169 lb) 05/14/2022 10:23 AM MECHANICAL ASSEMBLY Height 157.5 cm (5' 2) 05/14/2022 10:23 AM MECHANICAL ASSEMBLY Body Mass Index 30.91 05/14/2022 10:23 AM MECHANICAL ASSEMBLY Plan of Treatment Health Maintenance Due Date [...] COMPREHENSIVE METABOLIC PANEL Routine 05/14/2022 11:33 AM MECHANICAL ASSEMBLY Psoriasis Polyarthralgia Positive DANNIE (antinuclear antibody) from Last 3 Months or Most Recently Relevant to Health Maintenance Results * (ABNORMAL) COMPREHENSIVE METABOLIC PANEL (05/14/2022 11:33 AM MECHANICAL ASSEMBLY) BUN 13 7 - 26 mg/dL 05/14/2022 12:[address] [facility] Creatinine 0.77 0.56 - 0.96 mg/dL 05/14/2022 12:[address] [facility] Sodium 137 136 - 145 mmol/L 05/14/2022 12:[address] [facility] Potassium 3.6 3.5 - 4.5 mmol/L 05/14/2022 12:51 PM [facility] Chloride 102 98 - 107 mmol/L 05/14/2022 12:51 PM [facility] CO2 23 22 - 29 mmol/L 05/14/2022 12:51 PM [facility] Glucose 113 70 - 115 mg/dL 05/14/2022 12:51 PM [facility] Calcium 9.4 8.4 - 10.2 mg/dL 05/14/2022 12:51 PM [facility] Protein Total 7.3 6.0 - 8.3 g/dL 05/14/2022 12:51 PM [facility] Albumin 3.8 3.4 - 5.0 g/dL 05/14/2022 12:51 PM [facility] Bilirubin Total 0.5 0.2 - 1.2 mg/dL 05/14/2022 12:51 PM [facility] Alkaline Phosphatase 90 40 - 150 U/L 05/14/2022 12:51 PM [facility] ALT 18 5 - 55 U/L 05/14/2022 12:51 PM [facility] AST 17 5 - 34 U/L 05/14/2022 12:51 PM [facility] Anion Gap 16 8 - 18 05/14/2022 12:51 PM [facility] BUN/Creatinine Ratio 17 7 - 23 05/14/2022 12:51 PM [facility] Osmolality Calculated 285 270 - 300 mOsm/kg 05/14/2022 12:51 PM [facility] Albumin/Globulin Ratio 1.1 1.1 - 2.3 05/14/2022 12:51 PM [facility] eGFR by CKD-EPI 89(L) >=90 mL/min/1.7 3 m2 05/14/2022 12:51 PM [facility] Blood BLOOD SPECIMEN / Unknown Lab Venipuncture / Unknown 05/14/2022 11:33 AM [facility] 05/14/2022 12:16 PM [facility] us Campbell Young MD LAB - CHEMISTRY ORDERABLES Final Result [facility] [address] [place] [address] [phone] from Last 3 Months or Most Recently Relevant to Health Maintenance Insurance Member Subscriber Plan / Payer (Ef fective for All Dates) Name:Paula Guo L Relation to Subscriber:Spouse Name:AAKASH GUO Subscriber ID:Not on file Date of :1965 Payer ID:[id number] (NAIC) Group ID:Not on file Type:/ Address: [place] [id number] Member Subscriber Plan / Payer (Ef fective for All Dates) Name:Paula Guo Relation to Subscriber:Spouse Name:AAKASH GUO Subscriber ID:Not on file Date of :1965 Payer ID:[id number] (NAIC) Group ID:Not on file Type:/ Address: [place] [id number] Care Teams And Rescue Fire Fighter Crash Fire Relationship Specialty Start Date End Date Joce Billings MD [address] [place] [address] [address] [place] [id number] PCP - General 11/25/21
--- OUTSIDE RECORDS SUMMARY | 2024-10-30 07:32 | XMS_ITS | Clinical Summary ---
Author Organization [facility] Address [address] [place] [address] Care Team Providers Care Insert Molding Operator Name Role Phone Charanjit Stroud Primary Care [...] Date Diagnosed Date Acute sinusitis 09/20/2023 Asthma ([facility]) 09/20/2023 Dizziness 09/20/2023 Generalized headache 09/20/2023 Depression [...] (12/09/2022): Added automatically from request for surgery [id number] Allergic rhinitis 11/30/2022 Overview (09/20/2023): pharmacy doesn't carry zaditor anymore; will switch to patanol Essential hypertension 11/30/2022 Herpes labialis 11/30/2022 Hypothyroidism 11/30/2022 Tremor 11/30/2022 Vitamin D deficiency 11/30/2022 Aberrant right subclavian artery ([facility]) 09/22 Immunizations Immunization Administration Dates Next Due Influenza (Generic) 03/05/2021,04/15/2012,2003 Influenza Adult (Generic) 11/30/2022,02/12/2022 MODERNA COVID-19 (CUSTOMER SOLUTIONS SUPERVISOR HERMANN WHITLEY), MRNA, LNP-S, PF, 50 MCG/ [...] AM CDT Legal Sex Female 1:32 AM CVT RN Gender Identity Female 09/07/2023 11:31 AM CDT [...] 03/05/2021, 08/21/2020, Additional history exists PHQ-2 (Physician [place]) 03/15/2024 12/09/2022 DTaP, Tdap and Td Vaccines [...] to complete this topic Insurance Care Teams Insert Molding Operator Relationship Specialty Start Date End Date Charanjit Stroud PA [facility] [place] [address] PCP - General PHYSICIAN ADULT PROBATION OFFICER 09/13/23
[2024-10-30] MEDS: ONDANSETRON HCL ODT 4 MG TABLET PO (07:56)
[2024-10-30] MEDS: HYDROcodone/acetaminophen (*CRX) 5-325 MG TABLET 1 TAB PO (07:56)
[2024-10-30 08:46] VITALS: BP 145/107; PULSE 78; RESP 16; TEMP 36.4; O2SAT 96
== END 2024-10-30 08:48 | disposition home or self-care (01) ==
PROVIDERS: Emergency Provider General Practice
DX: S62.347A Nondisplaced fracture of base of fifth metacarpal bone, left hand, initial encounter for closed fracture (principal); E03.9 Hypothyroidism, unspecified; I10 Essential (primary) hypertension; X58.XXXA Exposure to other specified factors, initial encounter
CPT/HCPCS: 29125; 73130; 99284; A9270

== ENCOUNTER 2024-11-15 09:39 | Outpatient (CLI) | payer OTHER, SELFPAY ==
--- NOTE | ~2024-11-15 | CT_ITS ---
CT abdomen pelvis w con Clinical History: Lower abd pain . Comparison: None Technique: Axial images lung bases to symphysis pubis 100 mL Omnipaque 350 Coronal, sagittal reformats CT images acquired with automatic exposure control for dose reduction DLP: 600 mGy-cm Findings: Lung bases: Elevated hemidiaphragms bilaterally. Left side worse and containing abdominal visceral contents Visualized heart and pericardium: Unremarkable. Liver: Unremarkable. Gallbladder: Unremarkable. Spleen: Unremarkable. Pancreas: Unremarkable. Adrenal glands: Unremarkable. Kidneys: Right kidney- No hydronephrosis. No renal stones. Left kidney- No hydronephrosis. No renal stones. Large exophytic cyst. Distal esophagus/stomach: Unremarkable. Small bowel loops: Normal caliber and wall thickness. Colon: Apparent wall thickening distal loops likely merely underdistention. Appendix not seen. Nodes: No enlarged nodes. Peritoneum: No ascites. No free air. Urinary bladder: Unremarkable. Uterus: Removed. Adnexa: No masses. Bones: No acute bony abnormality. Soft tissues: Unremarkable. Aorta: No aneurysm or dissection. IVC: Unremarkable. Main portal vein/SMV/splenic vein: Patent. IMPRESSION: 1. No acute findings. Reviewed, dictated and finalized at location R. IMPRESSION: 1. No acute findings.
[2024-11-15 09:56] LABS: Estimated Glomerular Filt Rate > 60
--- OUTSIDE RECORDS SUMMARY | 2024-11-15 10:33 | XMS_ITS | Clinical Summary ---
Author Organization [facility] Address [address] [place] [address] Care Team Providers Care Senior Analyst Programmer Name Role Phone Charanjit Stroud Primary Care [...] Date Diagnosed Date Acute sinusitis 09/20/2023 Asthma ([facility]) 09/20/2023 Dizziness 09/20/2023 Generalized headache 09/20/2023 [...] (12/09/2022): Added automatically from request for surgery [id number] Allergic rhinitis 11/30/2022 Overview (09/20/2023): pharmacy doesn't carry zaditor anymore; will switch to patanol Essential hypertension 11/30/2022 Herpes labialis 11/30/2022 Hypothyroidism 11/30/2022 Tremor 11/30/2022 Vitamin D deficiency 11/30/2022 Aberrant right subclavian artery ([facility]) 09/22 Immunizations Immunization Administration Dates Next Due Influenza (Generic) 03/05/2021,04/15/2012,2003 Influenza Adult (Generic) 11/30/2022,02/12/2022 MODERNA COVID-19 (GRAIN ELEVATOR CLERK HERMANN WHITLEY), MRNA, LNP-S, PF, 50 MCG/ [...] AM CDT Legal Sex Female 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
== END 2024-11-15 09:40 | disposition home or self-care (01) ==
LOC: ANHIMG 09:44
DX: R10.30 Lower abdominal pain, unspecified (principal); G43.909 Migraine, unspecified, not intractable, without status migrainosus
CPT/HCPCS: 74177; Q9967

== ENCOUNTER 2024-11-20 13:36 | Outpatient (CLI) | payer OTHER, SELFPAY ==
--- NOTE | ~2024-11-20 | XR_ITS ---
EXAMINATION: XR hand LT min 3V, 11/20/2024 13:45 CDT HISTORY: S62.307A - Unspecified fracture of fifth metacarpal bone,... COMPARISON: No comparisons available. Findings: There is an evulsion fracture along the dorsal aspect probably arising from the lunate bone. There is a healing fracture of the proximal aspect of the fifth metacarpal. There are moderate degenerative changes of the first metacarpal carpal joint. Soft tissues unremarkable. Impression: Fractures detailed above Reviewed, dictated and finalized at location A. Impression: Fractures detailed above
--- OUTSIDE RECORDS SUMMARY | 2024-11-20 13:41 | XMS_ITS | Clinical Summary ---
Author Organization [facility] Address [address] [place] [address] Care Team Providers Care Nursing Unit Clerk Name Role Phone Charanjit Stroud Primary Care [...] Date Diagnosed Date Acute sinusitis 09/20/2023 Asthma ([facility]) 09/20/2023 Dizziness 09/20/2023 Generalized headache 09/20/2023 Depression [...] (12/09/2022): Added automatically from request for surgery [id number] Allergic rhinitis 11/30/2022 Overview (09/20/2023): pharmacy doesn't carry zaditor anymore; will switch to patanol Essential hypertension 11/30/2022 Herpes labialis 11/30/2022 Hypothyroidism 11/30/2022 Tremor 11/30/2022 Vitamin D deficiency 11/30/2022 Aberrant right subclavian artery ([facility]) 09/22 Immunizations Immunization Administration Dates Next Due Influenza (Generic) 03/05/2021,04/15/2012,2003 Influenza Adult (Generic) 11/30/2022,02/12/2022 MODERNA COVID-19 (DEVELOPMENT ASSISTANT HERMANN WHITLEY), MRNA, LNP-S, PF, 50 MCG/ [...] AM CDT Legal Sex Female 1:32 AM PRECONSTRUCTION MANAGER Gender Identity Female 09/07/2023 11:31 AM CDT [...] - Risk 60-74 years 1-dose series) 2023 PHQ-2 (Physician [place]) 03/15/2024 12/09/2022 COVID-19 Vaccine (2024- season) 2024 02/12/2022, 03/05/2021, 08/21/2020, Additional history exists DTaP, Tdap and Td Vaccines (2 - [...] to complete this topic Insurance Care Teams Nursing Unit Clerk Relationship Specialty Start Date End Date Charanjit Stroud PA [facility] [place] [address] PCP - General PHYSICIAN HEALTH UNIT SUPERVISOR 09/13/23
--- OUTSIDE RECORDS SUMMARY | 2024-11-20 13:41 | XMS_ITS | Clinical Summary ---
Author Organization [facility] Address [address] [facility] [place] [address] Care Team Providers Care Offset Printing Pressmen Name Role Phone Joce Billings MD Primary Care Provider [phone] Source Comments [facility],non-owned Affiliates and Associated Physician Practices is amultiple site organization consisting of ambulatory clinics and hospital sitesin [place], [place], [place] and [place]. This disclosure is being madepursuant to the Care Everywhere program and may not contain all information available regarding this patient. Last updated 17.[employer] Allergies No known active allergies Medications * [...] Active vitamin D, ergocalciferol, (Drisdol) 1.25 MG (22621 UT) capsule 1 (one) capsule every 7 [...] Comments Blood Pressure 140/88 05/14/2022 10:23 AM MEAT CUTTING BLOCK REPAIRER Pulse 96 05/14/2022 10:23 AM MEAT CUTTING BLOCK REPAIRER Temperature 36.5 C (97.7 F) 05/14/2022 10:23 AM MEAT CUTTING BLOCK REPAIRER Respiratory Rate - - Oxygen Saturation - - Inhaled Oxygen Concentration - - Weight 76.7 kg (169 lb) 05/14/2022 10:23 AM MEAT CUTTING BLOCK REPAIRER Height 157.5 cm (5' 2) 05/14/2022 10:23 AM MEAT CUTTING BLOCK REPAIRER Body Mass Index 30.91 05/14/2022 10:23 AM MEAT CUTTING BLOCK REPAIRER Plan of Treatment Health Maintenance Due Date [...] 01/26/1981 DTAP/TDAP/TD VACCINES (1 - Tdap) 1982 PNEUMOCOCCAL VACCINE 50+ (1 of 1 - PCV) 2013 ZOSTER VACCINE (1 of 2) 2013 COVID-19 VACCINE (1 - 2023-2 5 season) 2023 DEPRESSION SCREENING 03/15/2024 05/14/2022 INFLUENZA VACCINE (#1) 2024 04/15/2012 SCREENING FOR DIABETES 05/14/2025 05/14/2022 Respiratory Syncytial Virus (RSV) Vaccine Pt: [...] to complete this topic MENINGOCOCCAL (Group B) VACC INE SHARED DECISION-MAKING Aged Out No longer eligibl e based on patient's age to complete this topic MENINGOCOCCAL GROUPS A/C/Y/W VACCINE Aged Out No longer eligible b ased on patient's age to complete this topic Procedures Procedure Name Priority Date/Time Associated Diagnosis Comments COMPREHENSIVE METABOLIC PANEL Routine 05/14/2022 11:33 AM MEAT CUTTING BLOCK REPAIRER Psoriasis Polyarthralgia Positive DANNIE (antinuclear antibody) from Last 3 Months or Most Recently Relevant to Health Maintenance Results * (ABNORMAL) COMPREHENSIVE METABOLIC PANEL (05/14/2022 11:33 AM MEAT CUTTING BLOCK REPAIRER) BUN 13 7 - 26 mg/dL 05/14/2022 12:51 PM [facility] Creatinine 0.77 0.56 - 0.96 mg/dL 05/14/2022 12:51 PM [facility] Sodium 137 136 - 145 mmol/L 05/14/2022 12:51 PM [facility] Potassium 3.6 3.5 - 4.5 mmol/L 05/14/2022 12:51 PM [facility] Chloride 102 98 - 107 mmol/L 05/14/2022 12:51 PM [facility] CO2 23 22 - 29 mmol/L 05/14/2022 12:51 PM [facility] Glucose 113 70 - 115 mg/dL 05/14/2022 12:51 PM [facility] Calcium 9.4 8.4 - 10.2 mg/dL 05/14/2022 12:51 PM [facility] Protein Total 7.3 6.0 - 8.3 g/dL 05/14/2022 12:51 PM [facility] Albumin 3.8 3.4 - 5.0 g/dL 05/14/2022 12:51 PM [facility] Bilirubin Total 0.5 0.2 - 1.2 mg/dL 05/14/2022 12:51 PM [facility] Alkaline Phosphatase 90 40 - 150 U/L 05/14/2022 12:51 PM [facility] ALT 18 5 - 55 U/L 05/14/2022 12:51 PM [facility] AST 17 5 - 34 U/L 05/14/2022 12:51 PM [facility] Anion Gap 16 8 - 18 05/14/2022 12:51 PM [facility] BUN/Creatinine Ratio 17 7 - 23 05/14/2022 12:51 PM [facility] Osmolality Calculated 285 270 - 300 mOsm/kg 05/14/2022 12:51 PM [facility] Albumin/Globulin Ratio 1.1 1.1 - 2.3 05/14/2022 12:51 PM [facility] eGFR by CKD-EPI 89(L) >=90 mL/min/1.7 3 m2 05/14/2022 12:51 PM [facility] Blood BLOOD SPECIMEN / Unknown Lab Venipuncture / Unknown 05/14/2022 11:33 AM [facility] 05/14/2022 12:16 PM [facility] Campbell Young MD LAB - CHEMISTRY ORDERABLES Final Result [facility] [address] [place] [address], [facility] [phone] from Last 3 Months or Most Recently Relevant to Health Maintenance Insurance Member Subscriber Plan / Payer (Ef fective for All Dates) Name:Paula Guo L Relation to Subscriber:Spouse Name:AAKASH GUO Subscriber ID:Not on file Date of :1965 Payer ID:[id number] (NAIC) Group ID:Not on file Type:/ Address: [place] [phone] Member Subscriber Plan / Payer (Ef fective for All Dates) Name:Paula Guo Relation to Subscriber:Spouse Name:AAKASH GUO Subscriber ID:Not on file Date of :1965 Payer ID:[id number] (NAIC) Group ID:Not on file Type:/ Address: [place] [phone] Member Subscriber Plan / Payer (Ef fective for All Dates) Name:Paula Guo Relation to Subscriber:Spouse Name:AAKASH GUO Subscriber ID:Not on file Date of :1965 Payer ID:[id number] (NAIC) Group ID:Not on file Type:/ Address: [place] [phone] Care Teams Offset Printing Pressmen Relationship Specialty Start Date End Date Joce Billings MD [address] [place] [address] [address] [place] [address] PCP - General 11/25/21
== END 2024-11-20 13:37 | disposition home or self-care (01) ==
PROVIDERS: Visit Provider Plastic Surgery
DX: S62.307A Unspecified fracture of fifth metacarpal bone, left hand, initial encounter for closed fracture (principal); X58.XXXA Exposure to other specified factors, initial encounter
CPT/HCPCS: 73130

== ENCOUNTER 2024-12-19 07:55 | Outpatient (CLI) | payer OTHER, SELFPAY ==
--- OUTSIDE RECORDS SUMMARY | 2024-12-17 07:12 | XMS_ITS | Encounter Summary ---
Author Organization [facility] Address [address] [place] [address] Care Team Providers Care Blood Bank Custodian Name Role Phone Danni Last ASPHALT PAVER Primary Care Provider Reason for Referral * MRI/CAT/PET Scan (Routine) - Closed Specialty Diagnoses / Procedures Referred By Contac t Referred To Contact Radiology Diagnoses Nondisplaced fracture of base of fifth metacarpal bone, left hand, initial encounter for closed fracture Procedures CT Wrist Left WO Contrast Jeanne Aguilar MD [address] [place], [place] [id number] Phone: tel: fax: [facility] [phone] [address] [phone] Referral ID Status Reason Start Date Expiration Date Visits Re quested Visits Authorized [id number] Closed 12/05/2024 03/05/2025 1 1 Reason for Visit * MRI/CAT/PET Scan (Routine) - Closed Specialty Diagnoses / Procedures Referred By Contac t Referred To Contact Radiology Diagnoses Nondisplaced fracture of base of fifth metacarpal bone, left hand, initial encounter for closed fracture Procedures CT Wrist Left WO Contrast Jeanne Aguilar MD [address] [place] [address] Phone: tel: fax: [facility] [phone] [address] [phone] Referral ID Status Reason Start Date Expiration Date Visits Re quested Visits Authorized [id number] Closed 12/05/2024 03/05/2025 1 1 Encounter Details Date Type Department Care Team (Latest Contact Info) Description 12/17/2024 7:12 AM CDT - 12/17/2024 11:59 PM CDT Hospital Encounter [facility] [id number] [address] [address] Nondisplaced fracture of base of fifth metacarpal bone, left hand, initial encounter for closed fracture Discharge Disposition: Discharge to home or self care Social History Tobacco Use Types Packs/Day Years Used Date Smoking Tobacco: Never Assessed Comments Unknown Sex and Gender Information Value Date Recorded Sex Assigned at Not on file Legal 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 Gender Identity Not on file Sexual Orientation Not on file documented as of this encounter Discharge Disposition Disposition Code Departure Means Destination Discharge to home or self care documented in this encounter Plan of Treatment Not on file documented as of this encounter Procedures Procedure Name Priority Date/Time Associated Diagnosis Comments CT WRIST LEFT WO CONTRAST Schedule Routine, Read Routine (OP Routine) 12/17/2024 7:17 AM CDT Nondisplaced fracture of base of fifth metacarpal bone, left hand, initial encounter for closed fracture documented in this encounter Results * CT Wrist Left WO Contrast (12/17/2024 7:17 AM CDT) Anatomical Region Laterality Modality Upper Extremities Left Computed Tomog kyleigh 12/17/2024 11:0 7 AM CDT Impressions 12/17/2024 11:07 AM CDT 1. No acute fracture or dislocation of the left wrist Electronically signed by: Finn Ramirez MD Narrative 12/17/2024 11:07 AM CDT EXAMINATION: CT WRIST LEFT WO CONTRAST HISTORY: Fifth metacarpal fracture COMPARISON: None available TECHNIQUE: Transverse computed tomographic images were obtained through the left wrist without contrast. FINDINGS: No acute fracture or dislocation is identified. There is a minute calcification or ossification adjacent to the ulnar styloid process which may represent sequela of prior injury. 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 The visualized tendons appear grossly intact. The visualized musculature is normal in size. No focal fluid collection. Procedure Note Benita Ramirez MD - 12/17/2024 EXAMINATION: CT WRIST LEFT WO CONTRAST HISTORY: Fifth metacarpal fracture COMPARISON: None available TECHNIQUE: Transverse computed tomographic images were obtained through the left wrist without contrast. FINDINGS: No acute fracture or dislocation is identified. There is a minute calcification or ossification adjacent to the ulnar styloid process which may represent sequela of prior injury. 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 The visualized tendons appear grossly intact. The visualized musculature is normal in size. No focal fluid collection. IMPRESSION: 1. No acute fracture or dislocation of the left wrist Electronically signed by: Finn Ramirez MD Jeanne Aguilar MD IMG CT PROCEDURES Final Result documented in this encounter Visit Diagnoses Diagnosis Nondisplaced fracture of base of fifth metacarpal bone, left hand, initial encounter for closed fracture documented in this encounter Care Teams Blood Bank Custodian Relationship Specialty Start Date End Date Danni Last NP [address] [facility] [place] [address] PCP - General Nurse Practitioner 12/05/24 documented as of this encounter
--- NOTE | ~2024-12-19 | MR_ITS ---
EXAMINATION: MR brain/brain stem wo/w con DATE: 12/19/2024 08:35 INDICATION: Migraine headache. TECHNIQUE: Magnetic resonance imaging (MRI) of the brain and brainstem was performed without and with 16 mL MultiHance intravenous contrast. COMPARISON: Head CT 11/03/2016 FINDINGS: There is no intracranial hemorrhage, acute infarction, or abnormal intracranial mass lesion. The ventricles are normal in size. There is mild mucosal thickening in the ethmoid sinuses. The orbits are normal. The mastoid air cells are normal. IMPRESSION: 1. Normal brain. Reviewed, dictated and finalized at location E. IMPRESSION: 1. Normal brain.
--- OUTSIDE RECORDS SUMMARY | 2024-12-19 08:03 | XMS_ITS | Clinical Summary ---
Author Organization [facility] Address [address] [place] [address] Care Team Providers Care Tapeman Name Role Phone Charanjit Stroud Primary Care [...] Diagnosed Date Acute sinusitis 09/20/2023 Asthma ([facility]) 09/20/2023 Dizziness 09/20/2023 Generalized headache 09/20/2023 Depression [...] (12/09/2022): Added automatically from request for surgery [id number] Allergic rhinitis 11/30/2022 Overview (09/20/2023): pharmacy doesn't carry zaditor anymore; will switch to patanol Essential hypertension 11/30/2022 Herpes labialis 11/30/2022 Hypothyroidism 11/30/2022 Tremor 11/30/2022 Vitamin D deficiency 11/30/2022 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 Immunizations Immunization Administration Dates Next Due Influenza (Generic) 03/05/2021,04/15/2012,2003 Influenza Adult (Generic) 11/30/2022,02/12/2022 MODERNA COVID-19 (RECRUITMENT ASSISTANT HERMANN WHITLEY), MRNA, LNP-S, PF, 48 [...] AM CDT Legal 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 Gender Identity Female 09/07/2023 11:31 AM CDT [...] 60-74 years 1-dose series) 2023 PHQ-2 (Physician [place]) 03/15/2024 12/09/2022 COVID-19 Vaccine ( season) 2024 02/12/2022, 03/05/2021, 08/21/2020, Additional history exists Influenza Adult (#1) 2024 11/30/2022, 02/12/2022, 03/05/2021, Additional history exists DTaP, Tdap and Td [...] to complete this topic Insurance Care Teams Tapeman Relationship Specialty Start Date End Date Charanjit Stroud PA [facility] [place] [phone] PCP - General PHYSICIAN MERGERS AND ACQUISITIONS ASSOCIATE 09/13/23
--- OUTSIDE RECORDS SUMMARY | 2024-12-19 08:03 | XMS_ITS | Clinical Summary ---
Author Organization [facility] Address [address] [place] [address] Care Team Providers Care Home Worker Name Role Phone Danni Last PROFESSOR OF LITERATURE Primary Care Provider Encounters Date Type Department Care Team Description 12/17/2024 7:12 AM CDT - 12/17/2024 11:59 PM CDT Hospital Encounter [facility] Imaging [address] [place] [address] Nondisplaced fracture of base of fifth metacarpal bone, left hand, initial encounter for closed fracture Discharge Disposition: Discharge to home or self care 12/04/2024 Orders Only [facility] Information Management [address] [place] [address] Scanning, Provider from Last 3 Months Social History Tobacco Use Types Packs/Day Years Used Date Smoking Tobacco: Never Assessed Comments Unknown Sex and Gender Information Value Date Recorded Sex Assigned at Not on file 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 Gender Identity Not on file Sexual Orientation Not on file Plan of Treatment Health Maintenance Due Date Last Done Comments Breast Cancer Screening-Mammogram 1965 Cervical Cancer Screening 1965 Colon Cancer Screening-Colonoscopy 1965 Depression Screening 1965 Hepatitis C Screening 1965 Hepatitis B Screening 1981 Regular Well Visit/Exam 18-64 1981 Pneumococcal vaccine <65 (1 of 2 - PCV) 1982 Zoster Vaccine (1 of 2) 2013 Covid-19 Vaccine (2024-2 6 season) 2024 12/08/2022, 02/12/2022, 03/05/2021, Additional history exists Influenza Vaccine (#1) 2024 4, 11/30/2022, 02/12/2022, Additional history exists DTaP/Tdap/Td Vaccine (2 - Td or Tdap) 05/09/2026 05/09/2016 Procedures Procedure Name Priority Date/Time Associated Diagnosis Comments CT WRIST LEFT WO CONTRAST Schedule Routine, Read Routine (OP Routine) 12/17/2024 7:17 AM CDT Nondisplaced fracture of base of fifth metacarpal bone, left hand, initial encounter for closed fracture SCAN - OTHER ORDERS 12/04/2024 from Last 3 Months Results * CT Wrist Left WO Contrast [...] Aguilar MD IMG CT PROCEDURES Final Result * SCAN - OTHER ORDERS (12/04/2024) Provider Scanning Final Result from Last 3 Months [place] [facility] [place] Home Worker Relationship Specialty Start Date End Date Danni Last NP [address] [place] [address] PCP - General Nurse Practitioner 12/05/24
--- OUTSIDE RECORDS SUMMARY | 2024-12-19 08:03 | XMS_ITS | Clinical Summary ---
Author Organization [facility] Address [address] [place] [address] Care Team Providers Care Electronics Production Supervisor Name Role Phone Joce Billings MD Primary Care Provider [phone] [facility],non-owned Affiliates and Associated Physician Practices is amultiple site organization consisting of ambulatory clinics and hospital sitesin [place], [place], [place] and [place]. This disclosure is being madepursuant to the Care Everywhere program and may not contain all information available regarding this patient. 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 Pulse 96 05/14/2022 10:23 AM RECEPTIONIST/TELEPHONE OPERATOR Temperature 36.5 C (97.7 F) 05/14/2022 10:23 AM RECEPTIONIST/TELEPHONE OPERATOR Respiratory Rate - - Oxygen Saturation - - Inhaled Oxygen Concentration - - Weight 76.7 kg (169 lb) 05/14/2022 10:23 AM RECEPTIONIST/TELEPHONE OPERATOR Height 157.5 cm (5' 2) 05/14/2022 10:23 AM RECEPTIONIST/TELEPHONE OPERATOR Body Mass Index 30.91 05/14/2022 10:23 AM RECEPTIONIST/TELEPHONE OPERATOR Plan of Treatment Health Maintenance Due Date [...] 2013 ZOSTER VACCINE (1 of 2) 2013 DEPRESSION SCREENING 03/15/2024 05/14/2022 COVID-19 VACCINE (1 - 2023-2 5 season) 2024 INFLUENZA VACCINE (#1) 2024 04/15/2012 SCREENING FOR [...] COMPREHENSIVE METABOLIC PANEL Routine 05/14/2022 11:33 AM RECEPTIONIST/TELEPHONE OPERATOR Psoriasis Polyarthralgia Positive DANNIE (antinuclear antibody) from Last 3 Months or Most Recently Relevant to Health Maintenance Results * (ABNORMAL) COMPREHENSIVE METABOLIC PANEL (05/14/2022 11:33 AM RECEPTIONIST/TELEPHONE OPERATOR) BUN 13 7 - 26 mg/dL 05/14/2022 12:51 PM [facility] Creatinine 0.77 0.56 - 0.96 mg/dL 05/14/2022 12:51 PM [facility] Sodium 137 136 - 145 mmol/L 05/14/2022 12:51 PM [facility] Potassium 3.6 3.5 - 4.5 mmol/L 05/14/2022 12:51 PM [facility] Chloride 102 98 - 107 mmol/L 05/14/2022 12:51 PM [facility] CO2 23 22 - 29 mmol/L 05/14/2022 12:51 PM [facility] Glucose 113 70 - 115 mg/dL 05/14/2022 12:51 PM [facility] Calcium 9.4 8.4 - 10.2 mg/dL 05/14/2022 12:51 PM [facility] Protein Total 7.3 6.0 - 8.3 g/dL 05/14/2022 12:51 PM [facility] Albumin 3.8 3.4 - 5.0 g/dL 05/14/2022 12:51 PM [facility] Bilirubin Total 0.5 0.2 - 1.2 mg/dL 05/14/2022 12:51 PM [facility] Alkaline Phosphatase 90 40 - 150 U/L 05/14/2022 12:51 PM [facility] ALT 18 5 - 55 U/L 05/14/2022 12:51 PM [facility] AST 17 5 - 34 U/L 05/14/2022 12:51 PM [facility] Anion Gap 16 8 - 18 05/14/2022 12:51 PM [facility] BUN/Creatinine Ratio 17 7 - 23 05/14/2022 12:51 PM [facility] Osmolality Calculated 285 270 - 300 mOsm/kg 05/14/2022 12:51 PM [facility] Albumin/Globulin Ratio 1.1 1.1 - 2.3 05/14/2022 12:51 PM [facility] eGFR by CKD-EPI 89(L) >=90 mL/min/1.7 3 m2 05/14/2022 12:51 PM [facility] Blood BLOOD SPECIMEN / Unknown Lab Venipuncture / Unknown 05/14/2022 11:33 AM [facility] 05/14/2022 12:16 PM [facility] Campbell Young MD LAB - CHEMISTRY ORDERABLES Final Result [facility] [address] [place] [address], [facility] [phone] from Last 3 Months or Most Recently Relevant to Health Maintenance Insurance Member Subscriber Plan / Payer (Ef fective for All Dates) Name:Paula Guo L Relation to Subscriber:Spouse Name:AAKASH GUO Subscriber ID:Not on file Date of :1965 Payer ID:[id number] (NAIC) Group ID:Not on file Type:/ Address: [place] [phone] Member Subscriber Plan / Payer (Ef fective for All Dates) Name:Paula uGo Relation to Subscriber:Spouse Name:AAKASH GUO Subscriber ID:Not on file Date of :1965 Payer ID:[id number] (NAIC) Group ID:Not on file Type:/ Address: [place] [phone] Member Subscriber Plan / Payer (Ef fective for All Dates) Name:Paula Guo Relation to Subscriber:Spouse Name:AAKASH GUO Subscriber ID:Not on file Date of :1965 Payer ID:[id number] (NAIC) Group ID:Not on file Type:/ Address: [place] [phone] Care Teams Electronics Production Supervisor Relationship Specialty Start Date End Date Joce Billings MD [address] [place] [address] [address] [place] [address] PCP - General 11/25/21
== END 2024-12-19 07:56 | disposition home or self-care (01) ==
DX: G43.909 Migraine, unspecified, not intractable, without status migrainosus (principal); R10.30 Lower abdominal pain, unspecified
CPT/HCPCS: 70553; A9577